=== PATIENT | female | born 1995 | race African-American/Black ===

== ENCOUNTER 2025-08-13 09:16 | Emergency (ER) | payer SELFPAY ==
[~2025-08-13] VITALS: Ht 157.5 cm; Wt 63.0 kg
[2025-08-13 09:18] VITALS: O2SAT 98
[2025-08-13 10:17] VITALS: BP 136/89; PULSE 99; RESP 17; TEMP 37; O2SAT 98
== END 2025-08-13 10:18 | disposition home or self-care (01) ==
LOC: ER 09:37
DX: O26.893 Other specified pregnancy related conditions, third trimester (principal); R51.9 Headache, unspecified; Z02.89 Encounter for other administrative examinations; Z3A.32 32 weeks gestation of pregnancy
CPT/HCPCS: 99283